=== PATIENT | female | born 1970 | race Caucasian/White ===

== ENCOUNTER 2022-08-01 12:40 | Emergency (ER) | payer BC, SELFPAY ==
[2022-08-01 12:52] VITALS: BP 136/84; PULSE 99; RESP 18; TEMP 36.7; O2SAT 97; BMI 32.5
--- NOTE | 2022-08-01 12:53 | ED.GENADULT ---
HPI - General Adult General Chief complaint: Skin/Abscess/Foreign Body Stated complaint: ingrown hair Time Seen by Provider: 08/01/22 14:02 Source: patient Limitations: no limitations History of Present Illness HPI narrative: 51-year-old female who is complaining of a large mass versus abscess in her right labial region. Patient states it started as size of a golf ball but has increased in size and pain since. No previous episodes of similar complaints in the past. Patient denies having diabetes. Patient states she had some chills last night but denies fevers. Symptoms mild to moderate and pain is 7/10. No discharge from the lesion. Patient states she is allergic to penicillin but has taken Keflex in the past. Patient was unsure if she had an ingrown hair. Related Data Previous Rx's Medication Instructions Recorded cephalexin 500 mg capsule 500 mg PO Q6H 7 days #28 caps 08/01/22 doxycycline hyclate 100 mg capsule 100 mg PO BID 10 days #20 caps 08/01/22 Allergies Allergy/AdvReac Type Severity Reaction Status Date / Time penicillamine Allergy Unknown Hives Verified 08/01/22 12:55 Review of Systems Review of Systems: General: No fever, no chills Cardiovascular: No chest pain, no peripheral edema, no shortness of breath Respiratory: No dyspnea, no sputum production, no cough Muscle skeletal: No malaise, no back pain, no neck pain, no extremity pain GI: No abdominal pain, no nausea vomiting, no diarrhea : Right labial pain swelling Skin: Lesion right vaginal area Immunology: No immunocompromised Hematology: No bleeding, no bruising PMFSH Past Medical History Attestation statement: The following information was validated with the patient. Social History Social History Advance Directives: No Advance Directives Information Provided: Yes Physical Exam ED Vital Signs: Vital Signs - 24 hr 08/01/22 12:52 Temperature 98.1 F Pulse Rate 99 Respiratory Rate 18 Blood Pressure 136/84 Pulse Oximetry 97 Oxygen Delivery Method Room Air BMI result Body Mass Index 32.5 General appearance: Awake, alert, cooperative, in no acute distress Skin: Right labial area large fluctuant erythematous palpable abscess positive tenderness no discharge noted. Eyes: PERRL, EOMI, no icterus ENT: Oropharynx normal, uvula midline Neck: Soft supple full range of motion Abdomen: Soft nontender, no rebound or guarding, positive bowel sounds Extremities: No deformity, nontender, no peripheral edema noted Neuro: Alert oriented x3, no focal deficit Psych: Normal affect Course Course Course Narrative: 50 yold female presents to he ED for labia mass that is painful and occurred over night. Medications Administered Discontinued Medications Generic Name Dose Route Start Last Admin Trade Name Denisq PRN Reason Stop Dose Admin Cephalexin HCl 500 mg 08/01/22 14:34 08/01/22 14:44 Cephalexin 500 Mg Capsule PO 08/01/22 14:35 500 mg ONCE ONE Administration Doxycycline Monohydrate 100 mg 08/01/22 14:34 08/01/22 14:44 Doxycycline Monohydrate 100 Mg Capsule PO 08/01/22 14:35 100 mg ONCE ONE Administration Lidocaine HCl 10 ml 08/01/22 14:14 08/01/22 14:18 Lidocaine Hcl 1 % Mpf 5 Ml Vial SUBCUT 08/01/22 14:15 10 ml ONCE ONE Administration Procedures Abscess I/D Site: bartholin's gland Side (if applicable): right Local Anesthetic: lidocaine 1% Amount of anesthesia used (mL): 6 (ml) Technique: needle aspiration and incised with blade Amount of fluid expressed (mL): 30 (ml) Sent for culture/gram staining?: Yes Irrigation: Yes Packing used?: iodoform Medical Decision Making Medical Decision Making MDM Narrative: Right labial mass Weston cyst Cellulitis Ingrown hair Folliculitis 51-year-old female presents with the labial mass in pain. Patient states onset the past 24-36 hours. No previous episodes in the past no discharge noted from the lesion. Patient was open to wait on see your OBGYN but could not wait any longer. Physical exam patient has a tender fluctuant mass in the right labial region. This not seem to track towards the rectum on exam. Will plan incision and drainage at this time with possible packing placement and wound culture. 100 mg doxycycline p.o. 500 mg Keflex p.o. Detailed instructions for packing removal and warm soaks given patient also advised to return if increased fever redness or bleeding. See procedure note for details. Consistent drainage patient tolerated well copious purulent discharge was obtained and packing was placed. Patient tolerated procedure well Pain and pressure had resolved secondary to procedure according to patient Discharge Plan Discharge Clinical Impression: Abscess of Bartholin's gland Patient Disposition: Home, Self-Care Instructions: Abscess (ED), Abscess Follow-up (ED) Additional Instructions: Warm soaks multiple times a day antibiotics as directed Call General surgery or OBGYN follow-up Packing removal 48 hours You had a large Bartholin cyst abscess drained with copious amounts of purulent discharge Return if symptoms worsen fever chills or increased discharge Prescriptions: New doxycycline hyclate 100 mg capsule 100 mg PO BID 10 Days Qty: 20 0RF cephalexin 500 mg capsule 500 mg PO Q6H 7 Days Qty: 28 0RF Referrals: Daniel Cerda MD [Physician] - (Abscess incision and drainage packing placed) Interventions: ED Discharge Assessment Last Done: 08/01/22 15:01 Discharge Date/Time: 08/01/22 15:01
[2022-08-01] MEDS: Lidocaine HCl 1 % MPF 5 ML VIAL 10 ML SUBCUT (14:18)
[2022-08-01] MEDS: cephALEXin 500 MG CAPSULE PO (14:44)
[2022-08-01] MEDS: Doxycycline Monohydrate 100 MG CAPSULE PO (14:44)
== END 2022-08-01 15:01 | disposition home or self-care (01) ==
PROVIDERS: Emergency Provider Emergency Medicine Emergency Medical Services; PCP Physician Assistant
DX: N75.0 Cyst of Bartholin's gland (principal); Z79.899 Other long term (current) drug therapy
CPT/HCPCS: 56420; 87070; 87077; 87205; 99282; 99283

== ENCOUNTER 2025-02-20 08:26 | Outpatient (AMB) | payer BC, SELFPAY ==
--- NOTE | 2025-02-20 13:14 | MHC.OFFVISWM ---
VS Expanded 02/20/25 13:28 Height 5 ft 1 in Weight 199 lb 8 oz BMI 37.7 Body Fat % 42.8 Body Fat Mass 85.6 Fat Free Mass 114.2 Visceral Fat Rating 13 Body Water % 40.6 Body Water Mass 81.2 Basal Metabolic Rate/Score 1,584 Intake Visit Reasons: [employer] [facility] BMI 37.9 Allergies Penicillins Allergy (Mild, Verified 02/20/25 13:18) rash Medication List - Last Reconciled 02/20/25 by Alberto Acharya MD albuterol sulfate 90 mcg/actuation (Ventolin HFA) 2 puffs inhalation Q6H PRN levothyroxine 50 mcg PO DAILY lisinopril 5 mg PO DAILY omeprazole 40 mg PO DAILY paroxetine HCl (Paxil) 20 mg PO DAILY secukinumab (Cosentyx Pen 300 mg/2 pens () 150 mg subcut Q4W [vitamin b complex PO] HPI HPI [employer] [facility] BMI 37.9: Details: Start time: 1.15pm, End time: 2pm ?I spent 40 minutes speaking with the patient on the phone plus an additional 5 minutes reviewing and updating records for a total of 45 minutes HPI Comments Details: Previous weight loss efforts: Ozempic (15 lbs) Wakes up: 5am, Sleeps: 10pm Breakfast: skips Lunch: 12pm (sandwich, soup) Dinner: 6-7pm (chicken, pasta, burger, vegetables) Snacks: 10am (cereal, chips), 8-9pm (fruits, chips, candy) Exercise: has home treadmill (inclines and tracks calories) Beverages: Coffee: 2 cups/d with cream and sugar), Tea: 2/wk (plain), Soda: regular Coke (1 bottle/day), Juice: none, ETOH: none PFSH Medical History (Updated 02/20/25 @ 13:48 by Alberto Acharya MD) Hypothyroidism Asthma Anxiety Depression Psoriasis Psoriatic arthritis GERD (gastroesophageal reflux disease) Hypertension BMI 37.0-37.9, adult Obesity Surgical History (Updated 01/07/25 @ 08:53 by Chanelle Felton CMA) Hx of section Hx of cholecystectomy Family History (Updated 01/07/25 @ 08:54 by Chanelle Felton CMA) Mother CHF (congestive heart failure) Diabetes Heart disease (organic) Father Diabetes Hypertension Brother Diabetes Social History (Updated 01/07/25 @ 08:54 by Chanelle Felton CMA) Alcohol intake: current Alcohol intake frequency: holidays/special occasions only Patient Tobacco Use Status: Never used Tobacco Telehealth Telehealth Telehealth Platform: Telephone Location of provider rendering services: practice address Location of patient: address on file Patient Identification confirmed using: Name, : Yes Telehealth method: voice only Patient verbally consented to treatment: Yes Patient verbally consented to billing insurance company: Yes Patient informed of any privacy concerns related to visit: Yes Minutes spent on Phone/Video with Pt.: 45 Assessment & Plan Assessment & Plan (1) Obesity: Code(s): E66.9 - Obesity, unspecified Category: Medical Qualifiers: Obesity type: due to excess calories Obesity classification: adult class 2 (BMI 35 - 39.9) Serious obesity comorbidity presence: with serious comorbidity Body mass index: BMI 37.0-37.9 Qualified Code(s): E66.812 - Obesity, class 2; Z68.37 - Body mass index [BMI] 37.0-37.9, adult Plan: 1.? Plan for lap sleeve gastrectomy. If diaphragmatic or ventral hernias are present at time of surgery, these will be repaired laparoscopically as well. I emphasized the importance of close follow-up, adherence to instructions and good communication. The surgery does not replace the need to change your lifestlyle which is the cause of the obesity problem. The surgery provides the motivation to try again to change your lifestyle, it reduces the appetite and make the transition to a better lifestyle easier and doubles the amount of weight you would lose compared to doing the lifestyle change without the surgery. You will need to be on a liquid diet with protein shakes for 2 weeks before surgery to maximize weight loss and boost your nutritional status to recover better from surgery and also for the first two weeks after surgery to let the stomach heal before we introduce other foods. After the first 2 weeks we will introduce protein bars and soft foods like scrambled eggs, cottage cheese and yogurt and after the 6th week will introduce meat, fish and cooked vegetables in small amounts. Over time you should be able to eat everything in small amounts. Side effects like nausea, vomiting, heartburn or abdominal pain are not common in the practice unless you are not following in the practice. This operation requires lifetime commitment to following in our practice and communication with me. You will much less weight and experience side effects if you don?t communicate or not following in the practice. Complications are rare and in our practice is about 1/10 of the national average. However, you can develop bleeding that may require transfusion (hasn?t happened for year in the practice), you may from complications (we did not have any deaths in the practice) and infections. Infections are usually a result of breakdown in communication or not understanding or following directions correctly. They are difficult to treat, they can happen during the first 6 weeks, they may require to be in the hospital for weeks or even months, not being able to eat by mouth and you may have drains and surgeries to try and correct the issue. Other risks and complications include possible conversion to an open procedure, leaks, small bowel obstruction, blood clots, cardiac, or pulmonary complications, as group home complications such as ulcers, insufficient weight loss and vitamin deficiencies. 2. Nutritional counseling. Start with one CELEBRATE REBUILD protein (buy online with the link I gave you) shake (HALF scoop in 8oz low fat unsweetened almond milk) at 6am-8am, 1 protein bar (CELEBRATE protein bars, buy at hospital's gift shop, buy online with the link I gave you) ) at 9am-11am, another CELEBRATE REBUILD protein shake (ONE scoop in 8oz low fat unsweetened almond milk) at 12pm-2pm, another Celebrate protein bar at 3pm-5pm, dinner at 6pm (8 forks of protein and 8 forks of salad/vegetables) AND another CELEBRATE REBUILD protein shake (ONE scoop in 8oz low fat unsweetened almond milk) at 8pm-10pm. So you do 3 protein shakes, 2 protein bars and one meal per day. Meal to include lean meat (beef, fish, pork, turkey, chicken), or latvian yogurt, or egg whites, or beans with a salad with olive oil and fruits (berries, pears, apples, kiwi). Avoid salt, breads, potatoes, rice, pasta, desserts. 3. Each shake would be drunk slowly, like coffee in a period of 2 hours. 4. Cut each bar in 4 pieces and eat each piece in 30min ?to make each bar last 2 hours. 5. I emphasized the importance of measuring accurately the food portion and measure it when serving the food in plate 6. The meal portions include 8 full-size forks of meat and 8 full-size forks of salad. You always eat the meat portion but you can replace up to 4 forks for salad/vegetables with rice, potatoes or pasta, or a fruit ?if you like. The less you do it the better weight loss will be. 7. One full-size fork is what it can be scooped on the fork without falling aside and not what can be bit with the fork. Use regular forks like those you find in a typical restaurant. 8.? Please buy the body composition scale we discussed and send me weight measurements as soon as possible and then once a week. Always include your diet and exercise plan. 9. Start treadmill with an incline of 2.0 and speed of 3.0. Increase incline by 1 every 3 min to a max incline of 8.0, stay 3min at 8.0 and then return to 2.0 and repeat same steps until calorie goal is met. Goal is to burn 2000 calories per week on exercise, which means either 300 calories daily. 10. I ordered a medication to help you with the weight loss which is called Zepbound. My office will try to authorize it. Please let me know when you receive it so I can give you a meal and exercise plan. Common side effects include nausea, vomiting, constipation, diarrhea, abdominal pain. Please let me know if you develop any of these symptoms. 11. Goal is to lose at least 1.5-2lbs per week 12. Goal to lose 10% of your weight before surgery, which is about 20lbs. Ultimate weight goal: 180lbs before surgery 13. Please follow the diet plan exactly without any change. If you don't like something about the plan or you feel hungry you need to communicate with me so I can help you revise the plan. You should not change the plan yourself 14. To be scheduled for EGD to assess the stomach's anatomy. The possibility of biopsies was discussed. Patient needs to avoid use of NSAIDs and aspirin for 1 week prior to EGD. You must be on liquids only the day before your endoscopy. Risks of perforation and bleeding was discussed with the patient. This will be an outpatient procedure with IV sedation. Orders: Orders Insulin Today E03.9 - Hypothyroidism, unspecified, E66.9 - Obesity, unspecified, I10 - Essential (primary) hypertension, K21.9 - Gastro-esophageal reflux disease without esophagitis, Z68.37 - Body mass index [BMI] 37.0-37.9, adult Hemoglobin A1c Today E03.9 - Hypothyroidism, unspecified, E66.9 - Obesity, unspecified, I10 - Essential (primary) hypertension, K21.9 - Gastro-esophageal reflux disease without esophagitis, Z68.37 - Body mass index [BMI] 37.0-37.9, adult Complete Blood Count Auto Diff Today E03.9 - Hypothyroidism, unspecified, E66.9 - Obesity, unspecified, I10 - Essential (primary) hypertension, K21.9 - Gastro-esophageal reflux disease without esophagitis, Z68.37 - Body mass index [BMI] 37.0-37.9, adult IRON PROFILE Today E03.9 - Hypothyroidism, unspecified, E66.9 - Obesity, unspecified, I10 - Essential (primary) hypertension, K21.9 - Gastro-esophageal reflux disease without esophagitis, Z68.37 - Body mass index [BMI] 37.0-37.9, adult Comprehensive Met. Panel Today E03.9 - Hypothyroidism, unspecified, E66.9 - Obesity, unspecified, I10 - Essential (primary) hypertension, K21.9 - Gastro-esophageal reflux disease without esophagitis, Z68.37 - Body mass index [BMI] 37.0-37.9, adult Vitamin B12 and Folate Today E03.9 - Hypothyroidism, unspecified, E66.9 - Obesity, unspecified, I10 - Essential (primary) hypertension, K21.9 - Gastro-esophageal reflux disease without esophagitis, Z68.37 - Body mass index [BMI] 37.0-37.9, adult C Reactive Protein Today E03.9 - Hypothyroidism, unspecified, E66.9 - Obesity, unspecified, I10 - Essential (primary) hypertension, K21.9 - Gastro-esophageal reflux disease without esophagitis, Z68.37 - Body mass index [BMI] 37.0-37.9, adult TSH reflex Free T4 Today E03.9 - Hypothyroidism, unspecified, E66.9 - Obesity, unspecified, I10 - Essential (primary) hypertension, K21.9 - Gastro-esophageal reflux disease without esophagitis, Z68.37 - Body mass index [BMI] 37.0-37.9, adult Ferritin Today E03.9 - Hypothyroidism, unspecified, E66.9 - Obesity, unspecified, I10 - Essential (primary) hypertension, K21.9 - Gastro-esophageal reflux disease without esophagitis, Z68.37 - Body mass index [BMI] 37.0-37.9, adult US abdomen comp w elastography Today E03.9 - Hypothyroidism, unspecified, E66.9 - Obesity, unspecified, I10 - Essential (primary) hypertension, K21.9 - Gastro-esophageal reflux disease without esophagitis, Z68.37 - Body mass index [BMI] 37.0-37.9, adult XR chest 2V Today E03.9 - Hypothyroidism, unspecified, E66.9 - Obesity, unspecified, I10 - Essential (primary) hypertension, K21.9 - Gastro-esophageal reflux disease without esophagitis, Z68.37 - Body mass index [BMI] 37.0-37.9, adult ECG 12 lead EKG Today E03.9 - Hypothyroidism, unspecified, E66.9 - Obesity, unspecified, I10 - Essential (primary) hypertension, K21.9 - Gastro-esophageal reflux disease without esophagitis, Z68.37 - Body mass index [BMI] 37.0-37.9, adult FL upper GI w air Today E03.9 - Hypothyroidism, unspecified, E66.9 - Obesity, unspecified, I10 - Essential (primary) hypertension, K21.9 - Gastro-esophageal reflux disease without esophagitis, Z68.37 - Body mass index [BMI] 37.0-37.9, adult H Pylori Breath Test Today E03.9 - Hypothyroidism, unspecified, E66.9 - Obesity, unspecified, I10 - Essential (primary) hypertension, K21.9 - Gastro-esophageal reflux disease without esophagitis, Z68.37 - Body mass index [BMI] 37.0-37.9, adult Lipid Panel Today E03.9 - Hypothyroidism, unspecified, E66.9 - Obesity, unspecified, I10 - Essential (primary) hypertension, K21.9 - Gastro-esophageal reflux disease without esophagitis, Z68.37 - Body mass index [BMI] 37.0-37.9, adult Zinc Today E03.9 - Hypothyroidism, unspecified, E66.9 - Obesity, unspecified, I10 - Essential (primary) hypertension, K21.9 - Gastro-esophageal reflux disease without esophagitis, Z68.37 - Body mass index [BMI] 37.0-37.9, adult Vitamin B1 Today E03.9 - Hypothyroidism, unspecified, E66.9 - Obesity, unspecified, I10 - Essential (primary) hypertension, K21.9 - Gastro-esophageal reflux disease without esophagitis, Z68.37 - Body mass index [BMI] 37.0-37.9, adult Vitamin A Today E03.9 - Hypothyroidism, unspecified, E66.9 - Obesity, unspecified, I10 - Essential (primary) hypertension, K21.9 - Gastro-esophageal reflux disease without esophagitis, Z68.37 - Body mass index [BMI] 37.0-37.9, adult Vitamin D 25-OH Total Today E03.9 - Hypothyroidism, unspecified, E66.9 - Obesity, unspecified, I10 - Essential (primary) hypertension, K21.9 - Gastro-esophageal reflux disease without esophagitis, Z68.37 - Body mass index [BMI] 37.0-37.9, adult Referrals Behavioral Health Referral E03.9 - Hypothyroidism, unspecified, E66.9 - Obesity, unspecified, I10 - Essential (primary) hypertension, K21.9 - Gastro-esophageal reflux disease without esophagitis, Z68.37 - Body mass index [BMI] 37.0-37.9, adult Nutrition/Dietitian Referral E03.9 - Hypothyroidism, unspecified, E66.9 - Obesity, unspecified, I10 - Essential (primary) hypertension, K21.9 - Gastro-esophageal reflux disease without esophagitis, Z68.37 - Body mass index [BMI] 37.0-37.9, adult Medications: New tirzepatide (weight loss) (Zepbound) for 4 weeks 2.5 mg (0.5 mL) subcut QWEEK 2 mL 0RF E66.812 - Obesity, class 2, I10 - Essential (primary) hypertension, Z68.37 - Body mass index [BMI] 37.0-37.9, adult
[2025-02-20 13:28] VITALS: BMI 37.7
== END 2025-02-20 14:00 | disposition home or self-care (01) ==
LOC: HO.HBS 08:26
PROVIDERS: PCP Physician Assistant; Visit Provider Surgery
DX: E66.812 Obesity, class 2 (principal); Z68.37 Body mass index [BMI] 37.0-37.9, adult
CPT/HCPCS: 99204